=== PATIENT | female | born 1965 | race Caucasian/White ===

== ENCOUNTER → 2016-10-27 | Outpatient (CLI) | payer OTHER | LOC: MAMO 10-20 10:20 | DX: Z12.31 Encounter for screening mammogram for malignant neoplasm of breast (principal); Z85.3 Personal history of malignant neoplasm of breast; Z90.12 Acquired absence of left breast and nipple | CPT/HCPCS: G0202 ==

== ENCOUNTER → 2022-01-05 | Outpatient (CLI) | payer OTHER ==
[~2022-01-05] MED LIST: ASPIR 8181 MG PO; CETIRIZINE HCL10 MG PO; CLARITIN10 MG PO; COZAAR100 MG PO; FIBERCON625 MG PO; FLEXERIL 10 MG10 MG PO; GLUCOPHAGE500 MG PO; HYDRALAZINE HCL25 MG PO; HYDROCHLOROTH12.5 MG PO; IBU600 MG PO; LEVAQUIN500 MG PO; LOPRESSOR 25 MG25 MG PO; MEGA BIOTIN10000 MCG PO; NORVASC10 MG PO; PRAVACHOL40 MG PO; TYLENOL W/CODEIN1 E1 PO
== END ==
LOC: MRI 10:14
DX: M47.816 Spondylosis without myelopathy or radiculopathy, lumbar region (principal); M48.061 Spinal stenosis, lumbar region without neurogenic claudication
CPT/HCPCS: 72148